=== PATIENT | male | born 1965 | race Caucasian/White ===

== ENCOUNTER 2021-08-11 12:43 | Observation (INO) | payer SELFPAY ==
[2021-08-11 13:34] LABS: CHLORIDE,CL 88 mmol/L (98-107); POTASSIUM,K 3.3 mmol/L (3.5-5.1); SODIUM,NA 128 mmol/L (136-148)
[2021-08-11] MEDS ORDERED: Sodium Chloride 0.9% 1,000 ML IV ONE (13:41)
[2021-08-11] MEDS ORDERED: Sodium Chloride 0.9% 2.5 ML Syringe FLUSH PRN ×2 (13:46→16:20)
[2021-08-11] MEDS ORDERED: Sodium Chloride 0.9% 10 ML Syringe FLUSH PRN ×2 (13:46→16:20)
[2021-08-11 13:47] LABS: BLOOD UREA NITROGEN,BUN 11 mg/dL (7.0-18.0); CARBON DIOXIDE,CO2 22.5 mmol/L (21.0-32.0); GLUCOSE RANDOM 114 mg/dL (74-106); LIPASE 806 U/L (73-393)
[2021-08-11 13:48] LABS: ESTIMATED GFR > 60.0 ml/min
[2021-08-11 15:35] LABS: CORONAVIRUS COVID-19 NAA NEGATIVE (NEGATIVE); INFLUENZA A NAA NEGATIVE (NEGATIVE); INFLUENZA B NAA NEGATIVE (NEGATIVE)
[2021-08-11] MEDS ORDERED: cefTRIAXone 1 GM in Sodium Chloride 0.9% 50 ML IV ONE (15:53)
[2021-08-11] MEDS ORDERED: Ondansetron 4 MG/2 ML SDV IVPUSH PRN (16:20)
[2021-08-11] MEDS ORDERED: Docusate Sodium 100 MG Cap PO PRN (16:20)
[2021-08-11] MEDS ORDERED: Acetaminophen 325 MG Tab PO PRN (16:20)
[2021-08-11] MEDS ORDERED: Albuterol/Ipratropium 3.0-0.5 MG/3 ML Neb Soln NEB PRN (16:20)
[2021-08-11] MEDS ORDERED: LORazepam 2 MG/ML SDV IVPUSH PRN (16:37)
[2021-08-11] MEDS ORDERED: Potassium Chloride 20 MEQ Tab.ER PO ONE (17:45)
[2021-08-11 19:42] LABS: BLOOD UREA NITROGEN,BUN 10 mg/dL (7.0-18.0); CARBON DIOXIDE,CO2 25.1 mmol/L (21.0-32.0); CHLORIDE,CL 91 mmol/L (98-107); GLUCOSE RANDOM 130 mg/dL (74-106); POTASSIUM,K 2.8 mmol/L (3.5-5.1); SODIUM,NA 131 mmol/L (136-148)
[2021-08-11 19:44] LABS: ESTIMATED GFR > 60.0 ml/min
[2021-08-11] MEDS ORDERED: Folic Acid 1 MG Tab PO SCH (21:00)
[2021-08-11] MEDS ORDERED: Thiamine 100 MG Tab PO SCH (21:00)
[2021-08-12 01:16] LABS: BLOOD UREA NITROGEN,BUN 11 mg/dL (7.0-18.0); CARBON DIOXIDE,CO2 27.1 mmol/L (21.0-32.0); CHLORIDE,CL 93 mmol/L (98-107); GLUCOSE RANDOM 96 mg/dL (74-106); POTASSIUM,K 3.2 mmol/L (3.5-5.1); SODIUM,NA 132 mmol/L (136-148)
[2021-08-12 01:23] LABS: ESTIMATED GFR > 60.0 ml/min
[2021-08-12 07:52] LABS: BLOOD UREA NITROGEN,BUN 10 mg/dL (7.0-18.0); CARBON DIOXIDE,CO2 24.5 mmol/L (21.0-32.0); CHLORIDE,CL 93 mmol/L (98-107); GLUCOSE RANDOM 80 mg/dL (74-106); LIPASE 836 U/L (73-393); SODIUM,NA 132 mmol/L (136-148)
[2021-08-12 07:56] LABS: ESTIMATED GFR > 60.0 ml/min
[2021-08-12] MEDS: Potassium Chloride 20 MEQ Tab.ER PO SCH ×2 (08:35→11:56)
[2021-08-12] MEDS ORDERED: Nicotine 7 MG/24 Hr Patch TRDERM SCH (09:00)
[2021-08-12] MEDS ORDERED: Potassium Chloride 20 MEQ Tab.ER PO ONE (14:00)
[2021-08-13] MEDS ORDERED: NICOTINE Remove Patch TRDERM SCH (09:00)
== END 2021-08-12 14:20 | disposition home or self-care (01) ==
LOC: MW.ED 12:43 → MW.MS 15:47
PROVIDERS: ADMIT Internal Medicine; ATTEND Internal Medicine
DX: K85.90 Acute pancreatitis without necrosis or infection, unspecified (principal); E87.1 Hypo-osmolality and hyponatremia; Z20.822 Contact with and (suspected) exposure to COVID-19
CPT/HCPCS: 0240U; 36415; 71045; 76700; 80048; 80053; 80307; 81001; 83605; 83690; 83735; 83880; 83930; 83935; 84300; 84443; 84484; 85025; 87086; 93005; 96374; 99285; A9270; G0378; J0696; J3490; J7030; 93010

== ENCOUNTER 2021-09-30 08:33 | Inpatient (IN) | payer MEDICAID ==
[2021-09-30] MEDS ORDERED: Sodium Chloride 0.9% 500 ML IV ONE (08:35)
[2021-09-30 09:32] LABS: BLOOD UREA NITROGEN,BUN 17 mg/dL (7.0-18.0); CHLORIDE,CL 89 mmol/L (98-107); GLUCOSE RANDOM 159 mg/dL (74-106); LIPASE 725 U/L (73-393); POTASSIUM,K 2.5 mmol/L (3.5-5.1); SODIUM,NA 131 mmol/L (136-148)
[2021-09-30 09:33] LABS: ESTIMATED GFR 71 mL/min (>60)
[2021-09-30] MEDS ORDERED: Magnesium Sulfate (4.06 MEQ/ML) 5 GM/10 ML SDV IV STA (10:36)
[2021-09-30] MEDS ORDERED: Potassium Phosphates 3 mMole/ML 15 ML SDV IV ONE (10:45)
[2021-09-30] MEDS ORDERED: Thiamine 500 MG in Sodium Chloride 0.9% 250 ML IV ONE (10:52)
[2021-09-30] MEDS ORDERED: Magnesium Sulfate/Water 2 GM in Premix Bag 1 BAG IV ONE (11:15)
[2021-09-30] MEDS ORDERED: Sodium Chloride 0.9% 1,000 ML IV ONE (11:54)
[2021-09-30] MEDS: Potassium Chloride 100 ML IV SCH ×2 (12:06→15:11)
[2021-09-30] MEDS ORDERED: Lactated Ringers 1,000 ML IV ONE ×3 (13:39→18:43)
[2021-09-30] MEDS ORDERED: Morphine 4 MG/ML VIAL IVPUSH ONE (16:33)
[2021-09-30 16:52] LABS: CARBON DIOXIDE,CO2 26.2 mmol/L (21.0-32.0); POTASSIUM,K 2.5 mmol/L (3.5-5.1)
[2021-09-30] MEDS ORDERED: Iopamidol 755 MG/ML 500 ML Multipack Bottle IVPUSH STA (17:27)
[2021-09-30] MEDS ORDERED: Albuterol/Ipratropium 3.0-0.5 MG/3 ML Neb Soln NEB PRN (18:44)
[2021-09-30] MEDS ORDERED: Acetaminophen 325 MG Tab PO PRN (18:44)
[2021-09-30] MEDS ORDERED: Ondansetron 4 MG/2 ML SDV IVPUSH PRN (18:44)
[2021-09-30] MEDS ORDERED: Lactated Ringers 1,000 ML IV SCH (18:45)
[2021-09-30] MEDS ORDERED: POTASSIUM CHLORIDE IV SCH (18:58)
[2021-09-30] MEDS ORDERED: LACTATED RINGERS IV SCH (18:58)
[2021-09-30] MEDS ORDERED: Phosphorus #1 250 MG Tab PO ONE (18:59)
[2021-09-30] MEDS ORDERED: LORazepam 2 MG/ML Syringe IVPUSH PRN (19:24)
[2021-09-30] MEDS ORDERED: Magnesium Oxide 400 MG Tab PO ONE (20:05)
[2021-09-30] MEDS: Folic Acid 1 MG/0.2 ML UD Syringe IV SCH (20:12)
[2021-09-30] MEDS: Pantoprazole 40 MG in Sodium Chloride 0.9% 10 ML IVPUSH SCH (20:12)
[2021-09-30] MEDS: Enoxaparin 40 MG/0.4 ML Syringe SUBCUT SCH (20:13)
[2021-09-30] MEDS: Potassium Chloride 20 MEQ in Premix Bag 1 BAG IV SCH ×2 (21:03→23:44)
[2021-09-30] MEDS: Lactated Ringers 1,000 ML IV SCH (21:06)
[2021-09-30] MEDS: Nicotine 14 MG/24 Hr Patch TRDERM SCH (23:46)
[2021-10-01] MEDS: Potassium Chloride 20 MEQ in Premix Bag 1 BAG IV SCH (02:15)
[2021-10-01] MEDS: Lactated Ringers 1,000 ML IV SCH ×2 (05:06→17:55)
[2021-10-01 07:06] LABS: CARBON DIOXIDE,CO2 24.1 mmol/L (21.0-32.0); POTASSIUM,K 2.8 mmol/L (3.5-5.1)
[2021-10-01] MEDS ORDERED: Thiamine 500 MG in Sodium Chloride 0.9% 100 ML IV SCH (08:00)
[2021-10-01] MEDS ORDERED: Potassium Chloride 20 MEQ Tab.ER PO ONE ×2 (09:03→19:03)
[2021-10-01] MEDS ORDERED: Magnesium Sulfate/Water 2 GM in Premix Bag 1 BAG IV ONE (09:05)
[2021-10-01] MEDS: Folic Acid 1 MG/0.2 ML UD Syringe IV SCH (09:36)
[2021-10-01] MEDS: Nicotine 14 MG/24 Hr Patch TRDERM SCH (09:36)
[2021-10-01] MEDS: Potassium Chloride 100 ML IV SCH ×2 (09:50→12:42)
[2021-10-01] MEDS: Thiamine 500 MG in Sodium Chloride 0.9% 250 ML IV SCH ×2 (11:43→15:40)
[2021-10-01] MEDS: Phosphorus #1 250 MG Tab PO SCH ×2 (12:41→17:10)
[2021-10-01] MEDS: Enoxaparin 40 MG/0.4 ML Syringe SUBCUT SCH (20:13)
[2021-10-01] MEDS: Pantoprazole 40 MG in Sodium Chloride 0.9% 10 ML IVPUSH SCH (20:14)
[2021-10-01] MEDS ORDERED: Thiamine 200 MG/2 ML MDV IVPUSH SCH (22:00)
[2021-10-02] MEDS: Thiamine 500 MG in Sodium Chloride 0.9% 250 ML IV SCH ×3 (00:50→16:16)
[2021-10-02] MEDS: Phosphorus #1 250 MG Tab PO SCH ×2 (00:50→05:57)
[2021-10-02] MEDS: Lactated Ringers 1,000 ML IV SCH ×2 (02:38→20:40)
[2021-10-02 06:47] LABS: CARBON DIOXIDE,CO2 26.4 mmol/L (21.0-32.0); POTASSIUM,K 2.9 mmol/L (3.5-5.1)
[2021-10-02] MEDS: Folic Acid 1 MG/0.2 ML UD Syringe IV SCH (08:45)
[2021-10-02] MEDS ORDERED: Potassium Chloride 20 MEQ Tab.ER PO ONE (09:13)
[2021-10-02] MEDS: Potassium Chloride 100 ML IV SCH ×2 (09:23→11:34)
[2021-10-02] MEDS: Nicotine 14 MG/24 Hr Patch TRDERM SCH (09:30)
[2021-10-02] MEDS ORDERED: Magnesium Sulfate/Water 2 GM in Premix Bag 1 BAG IV ONE (09:30)
[2021-10-02] MEDS ORDERED: Pantoprazole 40 MG in Sodium Chloride 0.9% 10 ML IVPUSH SCH (16:30)
[2021-10-02] MEDS: Pantoprazole 40 MG in Sodium Chloride 0.9% 10 ML IVPUSH SCH (20:10)
[2021-10-03] MEDS: Thiamine 500 MG in Sodium Chloride 0.9% 250 ML IV SCH ×2 (00:26→10:33)
[2021-10-03] MEDS: Lactated Ringers 1,000 ML IV SCH ×2 (04:42→20:18)
[2021-10-03 07:37] LABS: CARBON DIOXIDE,CO2 26.5 mmol/L (21.0-32.0); POTASSIUM,K 3.3 mmol/L (3.5-5.1)
[2021-10-03] MEDS ORDERED: Potassium Chloride 20 MEQ Tab.ER PO ONE (09:00)
[2021-10-03] MEDS ORDERED: Magnesium Sulfate/Water 2 GM in Premix Bag 1 BAG IV ONE (09:00)
[2021-10-03] MEDS: Pantoprazole 40 MG in Sodium Chloride 0.9% 10 ML IVPUSH SCH ×2 (09:27→20:19)
[2021-10-03] MEDS: Nicotine 14 MG/24 Hr Patch TRDERM SCH (09:29)
[2021-10-03] MEDS: Folic Acid 1 MG/0.2 ML UD Syringe IV SCH (09:30)
[2021-10-03 11:26] LABS: BILIRUBIN INDIRECT 0.3
[2021-10-04] MEDS: Lactated Ringers 1,000 ML IV SCH ×2 (04:23→16:49)
[2021-10-04 07:21] LABS: CARBON DIOXIDE,CO2 24.4 mmol/L (21.0-32.0); POTASSIUM,K 3.6 mmol/L (3.5-5.1)
[2021-10-04] MEDS ORDERED: Magnesium Sulfate/Water 2 GM/50 ML Premix Bag IV ONE (08:11)
[2021-10-04] MEDS ORDERED: Potassium Chloride 20 MEQ Tab.ER PO ONE (08:11)
[2021-10-04] MEDS ORDERED: Magnesium Sulfate/Water 2 GM in Premix Bag 1 BAG IV ONE (08:30)
[2021-10-04] MEDS: Pantoprazole 40 MG in Sodium Chloride 0.9% 10 ML IVPUSH SCH ×2 (08:37→20:15)
[2021-10-04] MEDS: Nicotine 14 MG/24 Hr Patch TRDERM SCH (08:38)
[2021-10-04] MEDS: Folic Acid 1 MG/0.2 ML UD Syringe IV SCH (08:39)
[2021-10-04] MEDS: Thiamine 250 MG in Sodium Chloride 0.9% 100 ML IV SCH (10:31)
[2021-10-05] MEDS: Lactated Ringers 1,000 ML IV SCH ×3 (00:58→19:24)
[2021-10-05 06:09] LABS: CARBON DIOXIDE,CO2 25.5 mmol/L (21.0-32.0)
[2021-10-05] MEDS: Pantoprazole 40 MG in Sodium Chloride 0.9% 10 ML IVPUSH SCH ×2 (08:39→19:59)
[2021-10-05] MEDS: Folic Acid 1 MG/0.2 ML UD Syringe IV SCH (08:42)
[2021-10-05] MEDS: Nicotine 14 MG/24 Hr Patch TRDERM SCH (08:44)
[2021-10-05] MEDS: Thiamine 250 MG in Sodium Chloride 0.9% 100 ML IV SCH (08:46)
[2021-10-05] MEDS ORDERED: Potassium Chloride 20 MEQ Tab.ER PO ONE (11:22)
[2021-10-05] MEDS ORDERED: Magnesium Sulfate/Water 2 GM/50 ML Premix Bag IV ONE (11:22)
[2021-10-05] MEDS ORDERED: Magnesium Sulfate/Water 2 GM in Premix Bag 1 BAG IV ONE (11:45)
[2021-10-06] MEDS: Lactated Ringers 1,000 ML IV SCH (03:31)
[2021-10-06] MEDS: Pantoprazole 40 MG in Sodium Chloride 0.9% 10 ML IVPUSH SCH ×2 (07:39→21:02)
[2021-10-06] MEDS: Thiamine 250 MG in Sodium Chloride 0.9% 100 ML IV SCH (08:04)
[2021-10-06] MEDS: Folic Acid 1 MG/0.2 ML UD Syringe IV SCH (08:04)
[2021-10-06] MEDS: Nicotine 14 MG/24 Hr Patch TRDERM SCH (08:04)
[2021-10-07] MEDS ORDERED: Pantoprazole 40 MG Tab.CR PO SCH (07:30)
[2021-10-07] MEDS: Nicotine 14 MG/24 Hr Patch TRDERM SCH (08:49)
[2021-10-07] MEDS: Thiamine 250 MG in Sodium Chloride 0.9% 100 ML IV SCH (08:51)
[2021-10-07] MEDS: Folic Acid 1 MG/0.2 ML UD Syringe IV SCH (08:51)
== END 2021-10-07 09:50 | disposition home or self-care (01) | DRG 438 ==
LOC: MW.ED 08:33 → MW.MS 16:35
PROVIDERS: ADMIT Student in an Organized Health Care Education/Training Program; ATTEND Student in an Organized Health Care Education/Training Program
PROC: HZ2ZZZZ Detoxification Services for Substance Abuse Treatment (ICD-10-PCS; principal; 2021-09-30)
DX: K85.90 Acute pancreatitis without necrosis or infection, unspecified (principal); K29.51 Unspecified chronic gastritis with bleeding; E51.2 Wernicke's encephalopathy; E87.1 Hypo-osmolality and hyponatremia; F10.10 Alcohol abuse, uncomplicated; E87.6 Hypokalemia; D41.9 Neoplasm of uncertain behavior of unspecified urinary organ; R26.2 Difficulty in walking, not elsewhere classified; F32.A Depression, unspecified; F17.210 Nicotine dependence, cigarettes, uncomplicated; Z20.822 Contact with and (suspected) exposure to COVID-19; Z87.19 Personal history of other diseases of the digestive system; Z79.899 Other long term (current) drug therapy
CPT/HCPCS: 36415; 70450; 70450-26; 71045; 71045-26; 74177; 74177-26; 76705; 76705-26; 80048; 80053; 80076; 80307; 81001; 82140; 82272; 82550; 82947; 83605; 83690; 83735; 83880; 84100; 84132; 84439; 84443; 84484; 85014; 85018; 85025; 85610; 87040; 93005; 93010; 96361; 96365; 96366; 96368; 97110-GP; 97116-GP; 97163-GP; 97530-GP; 99222; 99232; 99239; 99284; 99285-25; A9270-GY; C9113; J1650; J3411; J3475; J3480; J3490; J7030; J7040; J7050; J7120; J7620-GY; Q9967; U0002

== ENCOUNTER 2021-10-07 09:52 | Emergency (ER) | payer MEDICAID ==
[2021-10-07 11:56] LABS: ACETAMINOPHEN 2.2 ug/mL; BLOOD UREA NITROGEN,BUN 4 mg/dL (7.0-18.0); CARBON DIOXIDE,CO2 23.3 mmol/L (21.0-32.0); CHLORIDE,CL 107 mmol/L (98-107); GLUCOSE RANDOM 97 mg/dL (74-106); POTASSIUM,K 4.1 mmol/L (3.5-5.1); SODIUM,NA 140 mmol/L (136-148)
[2021-10-07 12:10] LABS: ESTIMATED GFR 107 mL/min (>60)
== END 2021-10-07 12:47 ==
LOC: MW.ED 09:52
DX: F32.A Depression, unspecified (principal); F10.10 Alcohol abuse, uncomplicated; Z20.822 Contact with and (suspected) exposure to COVID-19
CPT/HCPCS: 36415; 80053; 80143; 80179; 80305-QW; 80307; 81001; 83735; 84439; 84443; 85025; 93010; 99283; U0002